=== PATIENT | male | born 1995 | race African-American/Black ===

== ENCOUNTER 2021-02-23 17:01 | Emergency (ER) | payer MEDICAID, SELFPAY ==
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
[2021-02-23 17:12] VITALS: BP 144/67; PULSE 90; RESP 18; TEMP 36.1; O2SAT 99; BMI 29.1
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
[2021-02-23] MEDS: Ibuprofen 600 MG TABLET PO (18:25)
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
[2021-02-23 19:01] VITALS: BP 120/74; PULSE 60; RESP 16; TEMP 36.7; O2SAT 99
== END 2021-02-23 19:23 | disposition home or self-care (01) ==
LOC: HO.ED 18:29
PROVIDERS: Emergency Provider Internal Medicine
DX: S81.831A Puncture wound without foreign body, right lower leg, initial encounter (principal); F12.90 Cannabis use, unspecified, uncomplicated; F17.200 Nicotine dependence, unspecified, uncomplicated; W34.00XA Accidental discharge from unspecified firearms or gun, initial encounter; Y93.9 Activity, unspecified; Y92.9 Unspecified place or not applicable; Y99.9 Unspecified external cause status; Z79.899 Other long term (current) drug therapy; Z71.6 Tobacco abuse counseling
CPT/HCPCS: 73590; 99284